=== PATIENT | female | born 2000 | race Two or more races ===

== ENCOUNTER 2025-01-06 16:13 | Emergency (ER) | payer SELFPAY ==
[~2025-01-06] VITALS: Ht 167.6 cm; Wt 109.5 kg
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
[2025-01-06 17:55] VITALS: BP 137/88; PULSE 83; RESP 17; TEMP 98
[2025-01-06 17:56] VITALS: O2SAT 97
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
== END 2025-01-06 17:51 | disposition home or self-care (01) ==
LOC: ER 16:16
DX: S16.1XXA Strain of muscle, fascia and tendon at neck level, initial encounter (principal); S93.491A Sprain of other ligament of right ankle, initial encounter; Z88.6 Allergy status to analgesic agent; V49.9XXA Car occupant (driver) (passenger) injured in unspecified traffic accident, initial encounter; Y93.89 Activity, other specified; Y92.488 Other paved roadways as the place of occurrence of the external cause; Y99.8 Other external cause status
CPT/HCPCS: 72040; 73610